=== PATIENT | female | born 1980 | race Two or more races ===

== ENCOUNTER 2016-08-15 06:12 | Day surgery (SDC) | payer MEDICAID ==
[2016-08-13 13:58] LABS: ADD SCAN DIFF NO
[2016-08-13 14:01] LABS: BASOPHILS % 0.5 % (0.0-2.0); EOSINOPHILS # 0.3 10^3/ul (0.0-0.5); EOSINOPHILS % 3.6 % (0.0-7.0); HEMATOCRIT 37.5 % (37.0-47.0); LYMPHOCYTES % 23.9 % (15.0-51.0); MEAN CORPUSCULAR HEMOGLOBIN 29.8 pg (29.0-33.0); MEAN CORPUSCULAR HGB CONC 34.7 g/dl (32.0-37.0); MONOCYTE # 0.4 10^3/ul (0.3-0.9); MONOCYTES % 4.3 % (0.0-11.0); NEUTROPHIL # 5.7 10^3/ul (1.6-7.5); NEUTROPHILS % 67.5 % (39.0-77.0); PLATELET COUNT 242 10^3/UL (140-415); RED BLOOD COUNT 4.36 10^6/ul (4.20-5.40); RED CELL DISTRIBUTION WIDTH 13.2 % (11.5-14.5); WHITE BLOOD COUNT 8.5 10^3/ul (4.8-10.8)
[2016-08-13 14:08] LABS: ADD UMIC YES; URINE BILIRUBIN (Dip) NEGATIVE (NEGATIVE); URINE BLOOD (Dip) NEGATIVE (NEGATIVE); URINE COLOR LT. YELLOW (YELLOW); URINE GLUCOSE (Dip) NEGATIVE (NEGATIVE); URINE KETONES (Dip) NEGATIVE (NEGATIVE); URINE LEUKOCYTE ESTERASE (Dip) 2+ (NEGATIVE); URINE NITRITE (Dip) NEGATIVE (NEGATIVE); URINE TOTAL PROTEIN (Dip) NEGATIVE (NEGATIVE); URINE UROBILINOGEN (Dip) 0.2 E.U./dL (0.1-1.0)
[2016-08-13 14:13] LABS: INR 0.96; PROTIME 12.8 Sec (12.2-14.2)
[2016-08-13 14:14] LABS: ALBUMIN 4.3 g/dl (3.3-4.9); PARTIAL THROMBOPLASTIN TIME 29.3 Sec (25.0-35.0)
[2016-08-13 14:15] LABS: POTASSIUM 3.8 mmol/L (3.5-5.1)
[2016-08-13 14:16] LABS: BACTERIA,URINE MODERATE; URINE RBCS NONE SEEN /HPF (0)
[2016-08-13 14:17] LABS: ALBUMIN/GLOBULIN RATIO 1.43; BILIRUBIN,INDIRECT 0.5 mg/dl (0-1.1); BILIRUBIN,TOTAL 0.5 mg/dl (0.2-1.3); TOTAL PROTEIN 7.3 g/dl (6.1-8.1)
[2016-08-13 14:23] LABS: CALCIUM 9.2 mg/dl (8.4-10.2); CREATININE 0.63 mg/dl (0.44-1.00)
[~2016-08-15] VITALS: Ht 152.4 cm; Wt 84.0 kg
[2016-08-15] VITALS (15 sets, daily range): BP systolic 84–123; BP diastolic 46–64; PULSE 62–82; RESP 15–22; Ht 152.4 cm; Wt 84.0 kg
[2016-08-15] MEDS ORDERED: BUPIVACAINE 0.5%/EPI (SDV) 30 ML INJ ONE (06:43)
[2016-08-15] MEDS ORDERED: BUPIVACAINE 0.5%/EPI (SDV) 30 ML INJ INJ ONE (06:50)
[2016-08-15] MEDS ORDERED: FENTAnyl 50 MCG/ML VIAL ONE (07:38)
[2016-08-15] MEDS ORDERED: MIDAZOLAM 1 MG/ML 2 ML INJ ONE (07:38)
[2016-08-15] MEDS ORDERED: PHENYLephrine (100 MCG/ML) 5ML SYG ONE (07:46)
[2016-08-15] MEDS ORDERED: ONDANSETRON 4 MG INJ ONE (07:49)
[2016-08-15] MEDS ORDERED: PROPOFOL 20 ML ONE (07:49)
[2016-08-15] MEDS ORDERED: ROCURONIUM 50 MG INJ ONE (07:49)
[2016-08-15] MEDS ORDERED: DEXAMETHASONE 4 MG/ML 1 ML INJ ONE (07:49)
[2016-08-15] MEDS ORDERED: FAMOTIDINE 20 MG INJ ONE (07:49)
[2016-08-15] MEDS ORDERED: CEFAZOLIN 1 GM INJ ONE (07:49)
[2016-08-15] MEDS ORDERED: SUCCINYLCHOLINE CHLORIDE 100 MG/5 ML SYG IV ONE (07:49)
[2016-08-15] MEDS ORDERED: LIDOCAINE 2% (SDV) 5 ML INJ ONE (07:49)
[2016-08-15] MEDS ORDERED: NEOSTIGMINE 3 MG/3 ML SYRINGE ONE (08:16)
[2016-08-15] MEDS ORDERED: GLYCOPYRROLATE 0.4 MG INJ ONE (08:16)
[2016-08-15] MEDS ORDERED: EPHEDrine SULFATE 50 MG/5 ML SYG ONE (08:21)
[2016-08-15] MEDS ORDERED: KETOROLAC 30 MG INJ ONE (08:31)
[2016-08-15] MEDS ORDERED: LACTATED RINGER'S 1,000 ML IV SCH (08:37)
[2016-08-15] MEDS ORDERED: morphine 2 MG INJ IV PRN (09:00)
[2016-08-15] MEDS ORDERED: DIPHENHYDRAMINE 50 MG INJ IV PRN (09:00)
[2016-08-15] MEDS ORDERED: ACETAMINOPHEN 325 MG TAB PO PRN (09:00)
[2016-08-15] MEDS ORDERED: PROCHLORPERAZINE 10 MG INJ IV PRN (09:00)
[2016-08-15] MEDS ORDERED: MEPERIDINE 25 MG INJ IV PRN (09:00)
[2016-08-15] MEDS ORDERED: HYDROmorphONE (0.2 MG/ML) 10ML SYG IV PRN ×3 (09:00)
[2016-08-15] MEDS ORDERED: FENTAnyl 50 MCG/ML VIAL IV PRN ×3 (09:00)
[2016-08-15] MEDS ORDERED: OXYCODONE/ACETAMINOPHEN (5/325) TAB PO PRN ×3 (09:00)
[2016-08-15] MEDS ORDERED: ONDANSETRON 4 MG INJ IV PRN ×2 (09:00)
[2016-08-15] MEDS ORDERED: IBUPROFEN 600 MG TAB PO PRN (09:00)
--- NOTE | 2016-08-15 09:25 | PREOPHP ---
DATE OF ADMISSION: 08/15/2016 Admitted 08/15/2016 for a tubal ligation. CHIEF COMPLAINT: Multiparity. The patient desires sterilization. HISTORY OF PRESENT ILLNESS: This is a 35-year-old female, 7, para 7, who has requested ster ilization on the basis of multiparity. The procedure was discussed with the patient at great length as well as the alternatives, benefits, risks, and possible complications, and also a 1% failure rat e. She was allowed to ask questions. All her questions were answered to her satisfaction, and she signed the appropriate surgical informed consent. PAST MEDICAL HISTORY: The patient had an obstetrical history of 7 pregnancies that ended in 7 klaus l vaginal deliveries. Denies any cardiovascular disease, diabetes, renal disease, liver disease, th yroid disease, or neurological problems. ALLERGIES: SHE HAS NO KNOWN ALLERGIES. FAMILY HISTORY: Noncontributory. REVIEW OF SYSTEMS: A 12-point review of systems is noncontributory. PHYSICAL EXAMINATION: GENERAL: Well-developed and nourished, in no distress, alert and oriented x3. VITAL SIGNS: Showed temperature to be 97.2, pulse 77 and regular, respiratory rate is 18, blood pre ssure 133/64. HEENT: Within normal limits. Pupils are PERRLA. NECK: Supple. Thyroid is nonpalpable. There is no lymphadenopathy. BREASTS: Show no masses or lumps. LUNGS: Clear to percussion and auscultation. HEART: Normal sinus rhythm without a murmur. ABDOMEN: Soft without organomegalies or hernias. PELVIC: Normal external genitalia. The cervix is normal. Uterus small, midline, firm. No adnexal masses present. EXTREMITIES: Within normal limits. NEUROLOGIC: Also normal. IMPRESSION: Multiparity. The patient desires sterilization. PLAN: Laparoscopic bilateral tubal ligation, possible laparotomy if necessary. Dictated By: JEREMIAS GRIMES/RODNEY Conf#: [id number] DID#: [id number]
--- NOTE | 2016-08-15 11:40 | OPR ---
DATE OF OPERATION: 08/15/2016 PREOPERATIVE DIAGNOSES: 1. Multiparity. 2. Voluntary sterilization, POSTOPERATIVE DIAGNOSES: 1. Multiparity. 2. Voluntary sterilization. PROCEDURE: Laparoscopic bilateral tubal ligation. SURGEON: Jeremias Martell MD. ANESTHESIA: General. ANESTHESIOLOGIST: Dr. Guaman COMPLICATIONS: None. SPECIMENS: None. ESTIMATED BLOOD LOSS: Negligible. PROCEDURE AND FINDINGS: With the patient under general anesthesia, she was laid on the table in the dorsal lithotomy position. Her abdomen, perineum, and vagina were prepped with Betadine and after 3 minutes, she was draped in the usual sterile fashion for this procedure. The bladder had been cat heterized and emptied. A small 5 mm incision was done at the level of the umbilicus. Through this incision and while we were tenting up the anterior abdominal wall, a Veress needle was inserted. On ce the tip of the needle was ascertained to be intraperitoneal by the hanging drop of saline techniq ue, it was connected to the CO2 insufflator. Good pneumoperitoneum was obtained. Then, the needle was removed and a 5 mm trocar was passed in while we were tenting up the abdominal wall. Through this port, a 5 mm laparoscope with the endocamera was inserted. The patient was placed in T rendelenburg position by Dr. Guaman. The second port was placed in the midline under direct vision wi thout any problems in the hypogastric area. Through this second port, a Kleppinger clamp with a gyr us device at 35 carrera of current was inserted. The right tube was picked up in split portion and bu rned through and through for 1.5 cm. The same was done on the contralateral side. Pictures were ta marly for documentation. All the instruments were then removed from the patient's abdomen as well as much CO2 as possible. I ncisions were infiltrated with 0.5% Marcaine with epinephrine, a total of 20 mL. They were closed w ith 4-0 Monocryl. Sterile Band-Aids were applied. The patient withstood the procedure well and was taken to recovery room with all vital signs stable. EBL was negligible. Needle, sponge and instru ment count at the end of the procedure was correct twice. Dictated By: JEREMIAS GRIMES/NTS Conf#: [id number] [facility]#: [id number]
== END 2016-08-15 11:00 | disposition home or self-care (01) ==
LOC: SDS 06:12
PROVIDERS: ATTEND Specialist
DX: Z30.2 Encounter for sterilization (principal)
CPT/HCPCS: 58670; 80053; 81001; 84703; 85025; 85610; 85730; 86850; 86900; 86901; J0330; J0690; J1100; J1170; J1885; J2250; J2370; J2405; J2710; J3010; Z7512; Z7610; 81003